=== PATIENT | female | born 1950 | race Caucasian/White ===

== ENCOUNTER 2017-09-10 11:43 | Inpatient (IN) | payer MEDICARE, MEDICAID ==
[~2017-09-10] VITALS: Ht 165.1 cm; Wt 72.0 kg
[2017-09-10] MEDS ORDERED: PANTOPRAZOLE 40 MG/10 ML VIAL IV STA (12:31)
[2017-09-10] MEDS ORDERED: SODIUM CHLORIDE 0.9% 500 ML IVB ONE (12:31)
[2017-09-10] MEDS ORDERED: ONDANSETRON HCL 4 MG/2 ML VIAL IV ONE (12:45)
[2017-09-10] MEDS ORDERED: MORPHINE SULFATE 8mg/ml INJ SDV IV ONE (12:45)
[2017-09-10 13:30] LABS: Basophils # (auto) 0 uL; Basophils % (auto) 0.1 % (0.0-2.0); Eosinophils # (auto) 0 uL; Hemoglobin 9.8 g/dL (12.2-16.2); Monocytes # (auto) 0 uL; Neutrophils # (auto) 2.6 uL
[2017-09-10 13:32] LABS: Eosinophils % (auto) 1.3 % (0.0-7.0); Hematocrit 29.5 % (36.0-46.0); Lymphocytes % (auto) 27.4 % (10.0-50.0); Mean Corpuscular Hemoglobin 32.7 pg (28.0-32.0); Mean Corpuscular Hgb Conc. 33.3 g/dL (32.0-36.0); Mean Corpuscular Volume 98.2 fL (80.0-100.0); Monocytes % (auto) 0.6 % (0.0-12.0); Neutrophils % (auto) 70.6 % (37.0-80.0); Nucleated Red Blood Cells % 0.2 %; Red Cell Distribution Width 13.7 % (11.8-14.3); White Blood Cell 3.7 10^3/uL (4.4-10.8)
[2017-09-10 13:52] LABS: Platelet Count (auto) 8 10^3/uL (140-450)
[2017-09-10 13:55] LABS: Potassium 4.1 mmol/L (3.5-5.1)
[2017-09-10 13:56] LABS: Albumin 3.2 g/dL (3.4-5.0); BUN/Creatinine Ratio 33.9; Calcium 10.9 mg/dL (8.5-10.1); Total Protein 7.9 g/dL (6.4-8.2)
[2017-09-10] MEDS ORDERED: TEMAZEPAM 15 MG CAP PO PRN (14:15)
[2017-09-10] MEDS ORDERED: ALBUTEROL SULF 2.5 MG/0.5ML(0.5%) NEB SOLN NEB PRN (14:15)
[2017-09-10] MEDS ORDERED: LACTULOSE 20Gm/30ML SOLN PO PRN (14:15)
[2017-09-10] MEDS ORDERED: PROMETHAZINE HCL 25 MG/ML 1ML IV PRN (14:15)
[2017-09-10] MEDS ORDERED: MORPHINE SULFATE 8mg/ml INJ SDV IV PRN ×2 (14:15)
[2017-09-10] MEDS ORDERED: NITROGLYCERIN 0.4 MG SL TAB SL PRN (14:15)
[2017-09-10] MEDS ORDERED: LORazepam 0.5 MG TAB PO PRN (14:15)
[2017-09-10] MEDS: SODIUM CHLORIDE 0.9% 1,000 ML IV SCH (14:21)
[2017-09-10 14:25] VITALS: BP 108/69
[2017-09-10] MEDS ORDERED: PANTOPRAZOLE 40 MG TAB PO ONE (14:30)
[2017-09-10] MEDS ORDERED: FAM20T PO (14:51)
[2017-09-10] MEDS ORDERED: CHOL20007 PO (14:51)
[2017-09-10] MEDS ORDERED: CARV3.1240 PO (14:52)
[2017-09-10] MEDS ORDERED: ALLO100T PO (14:57)
[2017-09-10] MEDS ORDERED: LEVO200T45 PO (14:57)
[2017-09-10] MEDS ORDERED: CLOP75TA41 PO (14:57)
[2017-09-10] MEDS ORDERED: ASPI81TA27 PO (14:57)
[2017-09-10] MEDS ORDERED: METH2.5T3 PO (14:57)
[2017-09-10] MEDS ORDERED: FOLI1TAB6 PO (14:57)
[2017-09-10] MEDS ORDERED: GEMF600T3 PO (14:57)
[2017-09-10] MEDS ORDERED: LISI10TA6 PO (14:57)
[2017-09-10] MEDS ORDERED: ISOS30TA4 PO (14:57)
[2017-09-10 14:58] LABS: INR 0.97 (0.9-1.15); Prothrombin Time 10.6 sec (9.37-12.3)
[2017-09-10] MEDS ORDERED: GASTROGRAFIN 120 ML SOL ONE (16:36)
[2017-09-10] MEDS ORDERED: EZ-GAS II GRANULES (RADIOLOGY USE) PO ONE (16:45)
[2017-09-10] MEDS: methylPREDNISolone SOD SUCC 125 MG/2 ML VL IV SCH (18:50)
[2017-09-10 19:19] LABS: Basophils # (auto) 0 uL; Monocytes # (auto) 0 uL; Red Cell Distribution Width 13.9 % (11.8-14.3); White Blood Cell 2.8 10^3/uL (4.4-10.8)
[2017-09-10 19:20] LABS: Basophils % (auto) 0.2 % (0.0-2.0); Eosinophils # (auto) 0 uL; Eosinophils % (auto) 1.3 % (0.0-7.0); Hematocrit 25.6 % (36.0-46.0); Hemoglobin 8.6 g/dL (12.2-16.2); Lymphocytes # (auto) 0.9 uL; Lymphocytes % (auto) 31.8 % (10.0-50.0); Mean Corpuscular Hemoglobin 32.8 pg (28.0-32.0); Mean Corpuscular Hgb Conc. 33.6 g/dL (32.0-36.0); Mean Corpuscular Volume 97.9 fL (80.0-100.0); Monocytes % (auto) 0.6 % (0.0-12.0); Neutrophils # (auto) 1.9 uL; Neutrophils % (auto) 66.1 % (37.0-80.0); Nucleated Red Blood Cells % 0.4 %; Red Blood Cells 2.62 10^6/uL (4.0-5.20)
[2017-09-10 19:28] LABS: Platelet Count (auto) 6 10^3/uL (140-450)
[2017-09-10 19:31] LABS: % Iron Saturation 32.9 % (15-50)
[2017-09-10 19:37] LABS: Ferritin 1643.8 ng/mL (10-322)
[2017-09-10 19:38] LABS: Folate (Folic Acid) 14.1 ng/mL (5.38-24)
[2017-09-10 22:00] VITALS: BP 101/67
[2017-09-10] MEDS: PANTOPRAZOLE 40 MG TAB PO SCH (22:00)
[2017-09-10 22:05] VITALS: BP 101/67
[2017-09-10 23:30] VITALS: BP 104/65
[2017-09-10 23:50] VITALS: BP 107/62
[2017-09-11] VITALS (15 sets, daily range): BP systolic 86–131; BP diastolic 47–99
[2017-09-11] MEDS: SODIUM CHLORIDE 0.9% 1,000 ML IV SCH ×2 (00:11→09:36)
[2017-09-11 01:28] LABS: Hematocrit 22.9 % (36.0-46.0); Hemoglobin 7.9 g/dL (12.2-16.2)
[2017-09-11] MEDS: methylPREDNISolone SOD SUCC 125 MG/2 ML VL IV SCH ×4 (01:52→18:11)
[2017-09-11] MEDS: MORPHINE SULFATE 8mg/ml INJ SDV IV PRN ×2 (07:47→15:02)
[2017-09-11 07:59] LABS: Hemoglobin 11.8 g/dL (12.2-16.2)
[2017-09-11 08:01] LABS: Hematocrit 34.5 % (36.0-46.0); Mean Corpuscular Hemoglobin 32.5 pg (28.0-32.0); Mean Corpuscular Hgb Conc. 34.3 g/dL (32.0-36.0); Mean Corpuscular Volume 94.7 fL (80.0-100.0); Red Blood Cells 3.64 10^6/uL (4.0-5.20); Red Cell Distribution Width 14.6 % (11.8-14.3)
[2017-09-11 08:04] LABS: Platelet Count (auto) 18 10^3/uL (140-450); White Blood Cell 1.8 10^3/uL (4.4-10.8)
[2017-09-11 08:06] LABS: Band Neutrophils % (manual) 0; Basophils % (manual) 0 (0.0-2.0); Blast Cells 0; Eosinophils % (manual) 0 (0-7); Metamyelocytes % 0; Myelocytes % 0; Promyelocytes % 0; Reactive Lymphocytes 0
[2017-09-11 08:12] LABS: Albumin 2.9 g/dL (3.4-5.0); BUN/Creatinine Ratio 43.5; Bilirubin, Total 0.8 mg/dL (0.2-1.0); Calcium 9.9 mg/dL (8.5-10.1); Potassium 4.4 mmol/L (3.5-5.1); Total Protein 7.1 g/dL (6.4-8.2)
[2017-09-11] MEDS: PANTOPRAZOLE 40 MG TAB PO SCH ×2 (09:36→21:49)
[2017-09-11] MEDS ORDERED: PANTOPRAZOLE 40 MG TAB PO SCH (10:00)
[2017-09-11 12:01] LABS: Lymphocytes % (manual) 16 (10.0-50.0); Monocytes % (manual) 1 (0-12)
[2017-09-11 12:06] LABS: Hematocrit 34.3 % (36.0-46.0); Hemoglobin 11.5 g/dL (12.2-16.2)
[2017-09-12] VITALS (11 sets, daily range): BP systolic 99–146; BP diastolic 60–92
[2017-09-12] MEDS: methylPREDNISolone SOD SUCC 125 MG/2 ML VL IV SCH ×5 (01:22→23:17)
[2017-09-12 06:02] LABS: Albumin 2.8 g/dL (3.4-5.0); BUN/Creatinine Ratio 35.6; Calcium 9.5 mg/dL (8.5-10.1); Potassium 4.1 mmol/L (3.5-5.1)
[2017-09-12 06:06] LABS: Bilirubin, Total 0.6 mg/dL (0.2-1.0); Total Protein 6.6 g/dL (6.4-8.2)
[2017-09-12 08:07] LABS: Immunoglobulin G, Serum 825 mg/dL (700-1600)
[2017-09-12] MEDS: PANTOPRAZOLE 40 MG TAB PO SCH ×2 (09:57→23:18)
[2017-09-12 09:59] LABS: Basophils # (auto) 0 uL; Eosinophils # (auto) 0 uL; Hematocrit 29.4 % (36.0-46.0); Lymphocytes # (auto) 0.3 uL; Monocytes # (auto) 0 uL; Monocytes % (auto) 0.8 % (0.0-12.0); Neutrophils # (auto) 2.3 uL; White Blood Cell 2.6 10^3/uL (4.4-10.8)
[2017-09-12 10:01] LABS: Hemoglobin 9.9 g/dL (12.2-16.2); Lymphocytes % (auto) 10.6 % (10.0-50.0); Mean Corpuscular Hemoglobin 32.3 pg (28.0-32.0); Mean Corpuscular Hgb Conc. 33.6 g/dL (32.0-36.0); Neutrophils % (auto) 88.6 % (37.0-80.0); Nucleated Red Blood Cells % 0.3 %; Platelet Count (auto) 54 10^3/uL (140-450); Red Blood Cells 3.07 10^6/uL (4.0-5.20); Red Cell Distribution Width 14.9 % (11.8-14.3)
[2017-09-12] MEDS: HYDROcodone-ACET 5/325MG TAB PO PRN ×2 (10:32→17:19)
[2017-09-12] MEDS ORDERED: ISOSORBIDE MONONITRATE 60 MG TAB PO ONE (17:00)
[2017-09-12] MEDS ORDERED: LEVOTHYROXINE SODIUM 100 MCG TAB PO ONE (17:00)
[2017-09-12] MEDS ORDERED: CARVEDILOL 3.125 MG TAB PO ONE (17:00)
[2017-09-12] MEDS: CARVEDILOL 3.125 MG TAB PO SCH (22:00)
[2017-09-13] VITALS (7 sets, daily range): BP systolic 110–165; BP diastolic 60–92
[2017-09-13 05:21] LABS: Basophils # (auto) 0 uL; Basophils % (auto) 0.1 % (0.0-2.0); Eosinophils # (auto) 0 uL; Lymphocytes # (auto) 0.2 uL; Mean Corpuscular Hemoglobin 32.8 pg (28.0-32.0); Red Blood Cells 2.97 10^6/uL (4.0-5.20); Red Cell Distribution Width 14.7 % (11.8-14.3)
[2017-09-13 05:25] LABS: Hematocrit 28.5 % (36.0-46.0); Hemoglobin 9.8 g/dL (12.2-16.2); Lymphocytes % (auto) 8.9 % (10.0-50.0); Mean Corpuscular Hgb Conc. 34.2 g/dL (32.0-36.0); Monocytes # (auto) 0 uL; Monocytes % (auto) 1.7 % (0.0-12.0); Neutrophils # (auto) 2.4 uL; Neutrophils % (auto) 89.3 % (37.0-80.0); Nucleated Red Blood Cells % 0.5 %; Platelet Count (auto) 41 10^3/uL (140-450); White Blood Cell 2.7 10^3/uL (4.4-10.8)
[2017-09-13 05:49] LABS: Albumin 2.7 g/dL (3.4-5.0); BUN/Creatinine Ratio 34.4; Calcium 9.2 mg/dL (8.5-10.1)
[2017-09-13 05:51] LABS: Bilirubin, Total 0.5 mg/dL (0.2-1.0)
[2017-09-13] MEDS: methylPREDNISolone SOD SUCC 125 MG/2 ML VL IV SCH ×3 (06:32→17:33)
[2017-09-13] MEDS: LEVOTHYROXINE SODIUM 100 MCG TAB PO SCH (06:33)
[2017-09-13] MEDS ORDERED: LIDOCAINE VISCOUS 2% 15ML UD ONE (08:14)
[2017-09-13] MEDS ORDERED: diphenhdrAMINE HCL 50 MG/1 ML VL ONE (08:15)
[2017-09-13 09:44] LABS: Hepatitis B Surface Antibody Negative
[2017-09-13] MEDS: CARVEDILOL 3.125 MG TAB PO SCH ×2 (10:00→21:56)
[2017-09-13] MEDS: ISOSORBIDE MONONITRATE 60 MG TAB PO SCH (10:00)
[2017-09-13] MEDS: PANTOPRAZOLE 40 MG TAB PO SCH ×2 (10:00→21:56)
[2017-09-13 10:23] LABS: Hepatitis A Total Antibody Negative
[2017-09-13] MEDS: MIDAZOLAM HCL 5 MG/ML-1ML VIAL ONE ×2 (11:39→11:42)
[2017-09-13] MEDS: fentaNYL CITRATE 100 MCG/2 ML VL ONE ×2 (11:39→11:42)
[2017-09-13 12:13] LABS: Hepatitis C Antibody Negative (Negative)
[2017-09-13 12:14] LABS: Hepatitis B Surface Antigen Negative (Negative)
[2017-09-13 12:26] LABS: Hepatitis B Core Total AB Positive
[2017-09-13] MEDS: HYDROcodone-ACET 5/325MG TAB PO PRN ×2 (13:34→20:29)
[2017-09-14] MEDS: methylPREDNISolone SOD SUCC 125 MG/2 ML VL IV SCH ×5 (00:49→17:24)
[2017-09-14 05:10] VITALS: BP 151/72
[2017-09-14 05:51] LABS: Basophils # (auto) 0 uL; Eosinophils # (auto) 0 uL; Hemoglobin 11.1 g/dL (12.2-16.2); Lymphocytes # (auto) 0.3 uL; Platelet Count (auto) 62 10^3/uL (140-450); White Blood Cell 2.8 10^3/uL (4.4-10.8)
[2017-09-14 05:56] LABS: Eosinophils % (auto) 0.3 % (0.0-7.0); Hematocrit 32.6 % (36.0-46.0); Lymphocytes % (auto) 10.9 % (10.0-50.0); Mean Corpuscular Hemoglobin 32.8 pg (28.0-32.0); Mean Corpuscular Hgb Conc. 34.1 g/dL (32.0-36.0); Mean Corpuscular Volume 95.9 fL (80.0-100.0); Monocytes # (auto) 0.4 uL; Monocytes % (auto) 13.1 % (0.0-12.0); Neutrophils # (auto) 2.1 uL; Neutrophils % (auto) 75.7 % (37.0-80.0); Nucleated Red Blood Cells % 0.3 %; Red Cell Distribution Width 14.9 % (11.8-14.3)
[2017-09-14 06:28] LABS: Albumin 2.7 g/dL (3.4-5.0); BUN/Creatinine Ratio 35.4; Bilirubin, Total 0.5 mg/dL (0.2-1.0); Calcium 9.5 mg/dL (8.5-10.1); Magnesium 2.5 mg/dL (1.6-2.6); Potassium 3.6 mmol/L (3.5-5.1); Total Protein 6.1 g/dL (6.4-8.2)
[2017-09-14] MEDS: LEVOTHYROXINE SODIUM 100 MCG TAB PO SCH (06:42)
[2017-09-14] MEDS: HYDROcodone-ACET 5/325MG TAB PO PRN ×3 (06:43→22:15)
[2017-09-14 08:00] VITALS: BP 161/92
[2017-09-14 09:00] VITALS: BP 161/92
[2017-09-14] MEDS: PANTOPRAZOLE 40 MG TAB PO SCH ×2 (09:42→22:15)
[2017-09-14] MEDS: ACETAMINOPHEN 325 MG TAB PO SCH (09:42)
[2017-09-14] MEDS: CARVEDILOL 3.125 MG TAB PO SCH ×2 (09:42→22:15)
[2017-09-14] MEDS: ISOSORBIDE MONONITRATE 60 MG TAB PO SCH (09:43)
[2017-09-14] MEDS ORDERED: IV IMMUNE GLOBULIN(IVIG) 10% 20G/200ML IV SCH (10:00)
[2017-09-14 16:51] VITALS: BP 155/93
[2017-09-14] MEDS: IMMUNE GLOBULIN 10% IV SCH (18:32)
[2017-09-14 22:00] VITALS: BP 143/89
[2017-09-15] MEDS: methylPREDNISolone SOD SUCC 125 MG/2 ML VL IV SCH ×2 (00:09→05:55)
[2017-09-15 05:00] VITALS: BP 142/78
[2017-09-15] MEDS: LEVOTHYROXINE SODIUM 100 MCG TAB PO SCH (05:55)
[2017-09-15 06:57] LABS: Basophils # (auto) 0 uL; Eosinophils # (auto) 0 uL; Hematocrit 32.9 % (36.0-46.0); Hemoglobin 11.3 g/dL (12.2-16.2); Lymphocytes # (auto) 0.3 uL; Lymphocytes % (auto) 12.3 % (10.0-50.0); Mean Corpuscular Hemoglobin 33.1 pg (28.0-32.0); Mean Corpuscular Hgb Conc. 34.3 g/dL (32.0-36.0); Mean Corpuscular Volume 96.6 fL (80.0-100.0); Monocytes # (auto) 0.2 uL; Monocytes % (auto) 7.6 % (0.0-12.0); Neutrophils # (auto) 2.3 uL; Neutrophils % (auto) 80.1 % (37.0-80.0); Nucleated Red Blood Cells % 0.8 %; Platelet Count (auto) 104 10^3/uL (140-450); Red Cell Distribution Width 14.5 % (11.8-14.3); White Blood Cell 2.8 10^3/uL (4.4-10.8)
[2017-09-15] MEDS: HYDROcodone-ACET 5/325MG TAB PO PRN ×2 (07:08→15:50)
[2017-09-15 08:00] VITALS: BP 155/99
[2017-09-15 08:20] VITALS: BP 155/99
[2017-09-15 08:23] VITALS: BP 158/104
[2017-09-15] MEDS: CARVEDILOL 3.125 MG TAB PO SCH (09:31)
[2017-09-15] MEDS: PANTOPRAZOLE 40 MG TAB PO SCH (09:31)
[2017-09-15] MEDS: ISOSORBIDE MONONITRATE 60 MG TAB PO SCH (09:32)
[2017-09-15] MEDS ORDERED: predniSONE 20 MG TAB PO SCH (10:00)
[2017-09-15] MEDS: ACETAMINOPHEN 325 MG TAB PO SCH (11:20)
[2017-09-15] MEDS ORDERED: PANT40TA2 PO (11:24)
[2017-09-15] MEDS ORDERED: PRE5T PO ×2 (11:24→11:35)
[2017-09-15 12:56] VITALS: BP 128/87
[2017-09-15] MEDS: IMMUNE GLOBULIN 10% IV SCH (16:00)
[2017-09-15 17:01] VITALS: BP 122/61
== END 2017-09-15 19:55 | disposition home or self-care (01) | DRG 377 ==
LOC: ER 11:43 → TELE 11:44 → TELE-WESTW 20:30
PROVIDERS: ADMIT Internal Medicine; ATTEND Internal Medicine
PROC: 30233R1 Transfusion of Nonautologous Platelets into Peripheral Vein, Percutaneous Approach (ICD-10-PCS; 2017-09-10)
PROC: 30233N1 Transfusion of Nonautologous Red Blood Cells into Peripheral Vein, Percutaneous Approach (ICD-10-PCS; 2017-09-11)
PROC: 0DJ08ZZ Inspection of Upper Intestinal Tract, Via Natural or Artificial Opening Endoscopic (ICD-10-PCS; principal; 2017-09-13 11:35)
DX: K29.71 Gastritis, unspecified, with bleeding (principal); D61.810 Antineoplastic chemotherapy induced pancytopenia; N17.0 Acute kidney failure with tubular necrosis; E44.0 Moderate protein-calorie malnutrition; B19.10 Unspecified viral hepatitis B without hepatic coma; I69.354 Hemiplegia and hemiparesis following cerebral infarction affecting left non-dominant side; M48.54XA Collapsed vertebra, not elsewhere classified, thoracic region, initial encounter for fracture; M48.56XA Collapsed vertebra, not elsewhere classified, lumbar region, initial encounter for fracture; I10 Essential (primary) hypertension; I25.10 Atherosclerotic heart disease of native coronary artery without angina pectoris; Z95.5 Presence of coronary angioplasty implant and graft; E03.9 Hypothyroidism, unspecified; E78.5 Hyperlipidemia, unspecified; T45.1X5A Adverse effect of antineoplastic and immunosuppressive drugs, initial encounter; D63.8 Anemia in other chronic diseases classified elsewhere; G43.A1 Cyclical vomiting, in migraine, intractable; I25.2 Old myocardial infarction; K21.9 Gastro-esophageal reflux disease without esophagitis; I70.8 Atherosclerosis of other arteries; K57.30 Diverticulosis of large intestine without perforation or abscess without bleeding; M06.9 Rheumatoid arthritis, unspecified; Z80.0 Family history of malignant neoplasm of digestive organs; Z90.710 Acquired absence of both cervix and uterus
CPT/HCPCS: 36415; 43235; 71045; 73060; 74176; 74247; 76705; 78306; 80053; 80061; 82150; 82232; 82607; 82728; 82746; 82784; 83010; 83516; 83540; 83550; 83615; 83690; 83735; 83883; 84443; 85007; 85014; 85018; 85025; 85027; 85045; 85610; 85652; 85730; 86225; 86235; 86334; 86677; 86704; 86706; 86708; 86803; 86850; 86880; 86900; 86901; 86920; 87340; 93005; 96361; 96374; 96375; C9113; J1561; J2250; J2270; J2405